=== PATIENT | female | born 1990 | race Caucasian/White ===

== ENCOUNTER 2018-09-30 00:03 | Emergency (ER) | payer SELFPAY ==
[2018-09-30] MEDS ORDERED: IBUPROFEN 600 MG TABLET PO ONE (00:21)
--- NOTE | 2018-09-30 00:24 | Emergency Department Record ---
History of Present Illness - General Chief complaint: Extremity Problem Stated complaint: FINGER INJURY Time Seen by Provider: 09/30/18 00:18 Source: Patient Mode of Arrival: Ambulatory Limitations: No limitations - History of Present Illness Initial comments: The patient is here due to R 2nd finger pain. She accidentally shut the finger in a sliding pocket door about an hour ago. The finger is quite painful and she is having trouble moving it. MD Complaint: Extremity pain Onset/Timin -: Minutes(s) Location: Right, Hand History of Same: No Radiation: Distal Severity scale (1-10): 7 Quality: Aching, Other Consistency: Constant Improves with: Nothing Worsens with: Other Associated Symptoms: Denies other symptoms - Related Data Home Medications Medication Instructions Recorded Confirmed Last Taken No Home Med [NO HOME MEDS] 09/30/18 09/30/18 Unknown Allergies Allergy/AdvReac Type Severity Reaction Status Date / Time No Known Drug Allergies Allergy Verified 09/30/18 00:14 Travel Screening - Travel/Exposure Within Last 30 Days Have you traveled within the last 30 days?: No - Travel/Exposure Within Last Year Have you traveled outside the [place] in the last year?: No - Additonal Travel Details Have you been exposed to anyone with a communicable illness?: No - Travel Symptoms Symptom Screening: None Review of Systems Constitutional: Denies: Chills, Fever Past Medical History - SOCIAL HISTORY Smoking Status: Never smoker Alcohol Use: None Drug Use: None - RESPIRATORY Hx Respiratory Disorders: No - CARDIOVASCULAR Hx Cardio Disorders: No - NEURO Hx Neuro Disorders: No - GI Hx GI Disorders: No - Hx Genitourinary Disorders: No - ENDOCRINE Hx Endocrine Disorders: No - MUSCULOSKELETAL Hx Musculoskeletal Disorders: No - PSYCH Hx Psych Problems: No - HEMATOLOGY/ONCOLOGY Hx Hematology/Oncology Disorders: No Family Medical History Any Significant Family History?: Yes Hx Heart Disease: Grandparents Physical Exam - General General Appearance: Alert, Cooperative, No acute distress - Head Head exam: Atraumatic, Normocephalic - Extremities Extremities exam: Normal inspection (The R 2nd finger does not appear swollen with no lacerations. There is a trace area of bruising over the anterior DIP joint.), Tenderness (There is diffuse tenderness to the R 2nd finger.). negative: Full ROM (The patient will not bend the R 2nd finger due to pain.) - Neurological Neurological exam: Alert. negative: Motor sensory deficit Course Vital Signs 09/30/18 00:09 Temperature 98.1 F Pulse Rate [ 84 Pulse Ox Probe] Respiratory 20 Rate Blood Pressure 135/103 [Left Arm] Pulse Ox 100 - Reevaluation(s) Reevaluation #1: I did explain to the patient that she is to splint the finger for 3 days and use Motrin for pain with ice. She is to have the finger rechecked in 3 days to make sure the tendon function is normal. She again is refusing to flex or extend the finger due to pain so as I explained to her I cannot properly evaluate her tendon function and she is to have it rechecked later this week. 09/30/18 00:42 Medical Decision Making - Data Complexity MDM Data: X-Ray Ordered and/or Reviewed - Radiology Data Radiology results: Report reviewed (R 2nd finger: Neg.) Disposition Disposition: Discharge Clinical Impression: Finger contusion Qualifiers: Encounter type: initial encounter Finger: index finger Damage to nail status: without damage Laterality: right Qualified Code(s): S60.021A - Contusion of right index finger without damage to nail, initial encounter Disposition: Home, Self-Care Condition: (2) Stable Instructions: Contusion in Adults (ED) Additional Instructions: Please use ice to the finger and take Motrin for pain. Wear the splint for 3 days. Please see a doctor in 3 days to recheck to finger to make sure the tendon function is normal. Forms: Patient Portal Access Time of Disposition: 00:45 Quality - Quality Measures Quality Measures: N/A - Blood Pressure Screening View Details: Yes Does Patient Have Any of the Following: No Blood Pressure Classification: Hypertensive Reading Systolic Measurement: 135 Diastolic Measurement: 103 Screening for High Blood Pressure: < First Hypertensive BP, F/U Documented > [ G8950] First Hypertensive Follow-up Interventions: Referral to alternative/primary care provider.
--- NOTE | 2018-10-02 06:14 | RADIOLOGY REPORT ---
DATE: 09/30/2018 at 1229 a.m. EXAM: RIGHT INDEX FINGER. HISTORY: Shut the tip of the index finger in a pocket door. Pain distally. TECHNIQUE: Three views of the right index finger were obtained. COMPARISON: None. FINDINGS: There is soft tissue swelling along the dorsal aspect of the finger at the level of the distal phalanx and distal interphalangeal joint. The bones and joints are normal. There is no fracture or dislocation. IMPRESSION: 1. DISTAL SOFT TISSUE SWELLING. 2. NO FRACTURE. Job Number: [id number] MTDD
== END 2018-09-30 00:56 | disposition home or self-care (01) ==
LOC: ER 00:03
DX: S60.021A Contusion of right index finger without damage to nail, initial encounter (principal); W22.8XXA Striking against or struck by other objects, initial encounter; Y92.003 Bedroom of unspecified non-institutional (private) residence as the place of occurrence of the external cause
CPT/HCPCS: 73140; 99283

== ENCOUNTER 2019-05-21 06:04 | Emergency (ER) | payer SELFPAY ==
--- NOTE | 2019-05-21 06:22 | Emergency Department Record ---
History of Present Illness - General Chief complaint: ENT Stated complaint: FACIAL LAC Time Seen by Provider: 05/21/19 06:17 Source: Patient Mode of Arrival: Ambulatory Limitations: No limitations - History of Present Illness Initial comments: 29 yo female presents to ED for evaluation following a [id number] on ice resulting in a laceration to the mucosal surface of the upper lip. Patient reports that her piercing to the upper lip "broke off" and resulted in laceration to the upper lip. Patient denies other injury on examination, and denies injury to the upper teeth. Patient reports mild bleeding present, denies health problems at her baseline. MD complaint: Other (lip laceration) Onset/Timin -: Minutes(s) Location: Upper lip Severity: Moderate Severity scale (1-10): 7 Quality: Sharp Consistency: Constant Improves with: None Worsens with: None - Related Data Previous Rx's Medication Instructions Recorded Amoxicillin [Amoxil] 875 mg PO BID #20 tab 05/21/19 Allergies Allergy/AdvReac Type Severity Reaction Status Date / Time No Known Drug Allergies Allergy Verified 09/30/18 00:14 Travel Screening - Travel/Exposure Within Last 30 Days Have you traveled within the last 30 days?: No - Travel/Exposure Within Last Year Have you traveled outside the [place] in the last year?: No - Additonal Travel Details Have you been exposed to anyone with a communicable illness?: No - Travel Symptoms Symptom Screening: None Review of Systems Constitutional: Denies: Chills, Fever, Malaise, Night sweats Eyes: Denies: Eye discharge, Eye pain ENT: Reports: Other (Lip laceration). Denies: Congestion, Dental pain, Ear pain, Epistaxis Respiratory: Denies: Cough, Dyspnea Cardiovascular: Denies: Chest pain, Dyspnea on exertion Endocrine: Denies: Fatigue, Heat or cold intolerance Gastrointestinal: Denies: Abdominal pain, Nausea, Vomiting Genitourinary: Denies: Incontinence, Retention Musculoskeletal: Denies: Arthralgia, Back pain Skin: Denies: Bruising, Change in color Neurological: Denies: Abnormal gait, Confusion, Headache, Seizure Psychiatric: Denies: Anxiety Hematological/Lymphatic: Denies: Anemia, Blood Clots Past Medical History - SOCIAL HISTORY Smoking Status: Never smoker Alcohol Use: None Drug Use: None - RESPIRATORY Hx Respiratory Disorders: No - CARDIOVASCULAR Hx Cardio Disorders: No - NEURO Hx Neuro Disorders: No - GI Hx GI Disorders: No - Hx Genitourinary Disorders: No - ENDOCRINE Hx Endocrine Disorders: No - MUSCULOSKELETAL Hx Musculoskeletal Disorders: No - PSYCH Hx Psych Problems: No - HEMATOLOGY/ONCOLOGY Hx Hematology/Oncology Disorders: No Family Medical History Any Significant Family History?: No Hx Heart Disease: Grandparents Physical Exam - General General Appearance: Alert, Oriented x3, Cooperative, Mild distress, Anxious Limitations: No limitations - Head Head exam: Atraumatic, Normocephalic, Normal inspection Head exam detail: negative: Abrasion, Contusion, La's sign, General tenderness, Hematoma, Laceration - Eye Eye exam: Normal appearance. negative: Conjunctival injection, Periorbital swelling, Periorbital tenderness, Scleral icterus - ENT ENT exam: Other (0.5 cm linear laceration to the left upper lip, bleeding is well controlled.) Ear exam: negative: Auricular hematoma, Auricular trauma Nasal Exam: negative: Active bleeding, Discharge, Dried blood, Foreign body Mouth exam: negative: Drooling, Laceration, Muffled voice, Tongue elevation Teeth exam: negative: Dental caries, Dental tenderness #, Fractured tooth # Throat exam: negative: Tonsillar erythema, R peritonsillar mass, L peritonsillar mass - Neck Neck exam: Normal inspection. negative: Meningismus, Tenderness - Respiratory Respiratory exam: Normal lung sounds bilaterally. negative: Rales, Respiratory distress, Rhonchi, Stridor - Cardiovascular Cardiovascular Exam: Regular rate, Normal rhythm, Normal heart sounds - GI/Abdominal GI/Abdominal exam: Soft. negative: Rebound, Rigid, Tenderness - Rectal Rectal exam: Deferred - exam: Deferred - Extremities Extremities exam: Normal inspection. negative: Pedal edema, Tenderness - Back Back exam: Denies: CVA tenderness (R), CVA tenderness (L) - Neurological Neurological exam: Alert, Normal gait, Oriented X3 - Psychiatric Psychiatric exam: Normal affect, Normal mood - Skin Skin exam: Normal color. negative: Abrasion Type of lesion: negative: abrasion Course Vital Signs 05/21/19 06:09 Temperature 97.8 F Pulse Rate 77 Respiratory 20 Rate Blood Pressure 130/91 Pulse Ox 98 - Reevaluation(s) Reevaluation #1: 05/21/19 06:23 Procedure Note: 0.5 cm laceration to the upper upper lip mucosa, bleeding controlled. Wound was cleaned and prepped in sterile fashion, no residual FB identified on examination. Wound was anesthetized with 1.5 mL of 1% Lidocaine without epinephrine with good anesthesia, and the laceration was repaired with 4-0 Vicryl sutures in interrupted fashion. Patient tolerated the procedure well without complications. Patient's tetanus was updated prior to discharge. Patient was also started on Amoxicillin prior to discharge given the location of the patient's laceration. Patient and his mother were given wound care instructions and signs/symptoms to return to the ED for as well including: increased swelling, pain, redness, or discharge from the wound. Patient was counseled that her sutures would dissolve in 10-14 days. Disposition Disposition: Discharge Clinical Impression: Lip laceration Qualifiers: Encounter type: initial encounter Qualified Code(s): S01.511A - Laceration without foreign body of lip, initial encounter Disposition: Home, Self-Care Condition: (2) Stable Instructions: Care For Your Stitches (ED) Additional Instructions: Return to ED if your symptoms worsen or if you have any concerns. Amoxicillin as directed. Follow-up with your family doctor in 3-5 days as directed. Prescriptions: Amoxicillin [Amoxil] 875 mg PO BID #20 tab Forms: Patient Portal Access Time of Disposition: 06:31 Quality - Quality Measures Quality Measures: N/A - Blood Pressure Screening Does Patient Have Any of the Following: No Blood Pressure Classification: Hypertensive Reading Systolic Measurement: 130 Diastolic Measurement: 91 Screening for High Blood Pressure: < First Hypertensive BP, F/U Documented > [G8950] First Hypertensive Follow-up Interventions: Referral to alternative/primary care provider.
[2019-05-21] MEDS ORDERED: Diph,Pert(Acell),Tet Vac 0.5 ML SYR IM ONE (06:23)
== END 2019-05-21 06:40 | disposition home or self-care (01) ==
LOC: ER 06:04
DX: S01.511A Laceration without foreign body of lip, initial encounter (principal); W00.0XXA Fall on same level due to ice and snow, initial encounter
CPT/HCPCS: 12011; 90715; 96372; 99283